=== PATIENT | male | born 1995 | race Two or more races ===

== ENCOUNTER 2019-08-28 12:43 | Emergency (ER) | payer MEDICAID ==
[~2019-08-28] VITALS: Ht 172.7 cm; Wt 78.0 kg
[2019-08-28 13:22] VITALS: BP 122/78
== END 2019-08-28 13:23 | disposition home or self-care (01) ==
LOC: ER 12:43
DX: F41.1 Generalized anxiety disorder (principal); F43.0 Acute stress reaction
CPT/HCPCS: 99283